=== PATIENT | male | born 1990 | race Caucasian/White ===

== ENCOUNTER → 2023-06-09 | Outpatient (CLI) | payer OTHER | LOC: M PLARAD 14:41 | PROVIDERS: ATTEND Physician Assistant | DX: M22.41 Chondromalacia patellae, right knee (principal); M25.461 Effusion, right knee; M25.561 Pain in right knee ==

== ENCOUNTER → 2025-07-09 | Outpatient (CLI) | payer OTHER | LOC: M PLAIMG 06:31 | PROVIDERS: ATTEND Physician Assistant | DX: M54.50 Low back pain, unspecified (principal); M54.2 Cervicalgia; M48.02 Spinal stenosis, cervical region ==